=== PATIENT | male | born 1985 | race Two or more races ===

== ENCOUNTER 2024-01-18 23:37 | Observation (INO) | payer BC ==
[2024-01-19] MEDS ORDERED: NALOXONE 0.4 MG/ML 1 ML VIAL IV PRN (00:03)
[2024-01-19] MEDS ORDERED: ONDANSETRON 4 MG/2 ML VIAL IVP PRN (00:03)
[2024-01-19] MEDS ORDERED: HYDROmorphone 0.5 MG/0.5 ML SYRINGE IVP PRN (00:03)
[2024-01-19] MEDS ORDERED: ACETAMINOPHEN TAB 325 MG TAB PO PRN (00:03)
[2024-01-19] MEDS: SODIUM CHLORIDE 0.9% 1,000 ML IV SCH (00:28)
--- NOTE | 2024-01-19 00:41 | ED ---
General Adult HPI - General Chief complaint: Abdominal Pain Stated complaint: Acute appendicitis Time Seen by Provider: 01/18/24 23:40 Source: patient, RN notes reviewed, old records reviewed Mode of arrival: EMS - History of Present Illness Initial comments: 38-year-old male presents from outside hospital with acute appendicitis. Patient had developed abdominal pain approximately 3 days prior and this had worsened and become localized to the right lower quadrant. Patient denies fever. Denies vomiting. He was seen at outside hospital had laboratory testing as well as CT scan. CT showed a dilated appendix with adjacent inflammatory change. No fluid collection or complicating process. Transferred for surgical evaluation. - Related Data Allergies Allergy/AdvReac Type Severity Reaction Status Date / Time cefaclor [From [facility]] Allergy Rash/Hives Verified 01/18/24 23:49 mustard Allergy Rash/Hives Verified 01/18/24 23:49 Penicillins Allergy Unknown Verified 01/18/24 23:49 Childhood Sulfa (Sulfonamide Allergy Unknown Verified 01/18/24 23:49 Antibiotics) Childhood Review of Systems ROS Statement: Those systems with pertinent positive or pertinent negative responses have been documented in the HPI. ROS Other: All systems not noted in ROS Statement are negative. Past Medical History History of Any Multi-Drug Resistant Organisms: None Reported Past Surgical History: Orthopedic Surgery Past Psychological History: No Psychological Hx Reported Smoking Status: Never smoker General Exam General appearance: alert, in no apparent distress Head exam: Present: atraumatic, normocephalic Eye exam: Present: normal appearance, PERRL ENT exam: Present: normal exam Neck exam: Present: normal inspection. Absent: tenderness, meningismus Respiratory exam: Present: normal lung sounds bilaterally. Absent: respiratory distress, wheezes Cardiovascular Exam: Present: regular rate, normal rhythm GI/Abdominal exam: Present: soft, tenderness (Mild right lower quadrant). Absent: distended Neurological exam: Present: alert, oriented X3 Psychiatric exam: Present: normal affect, normal mood Skin exam: Present: warm, dry, intact. Absent: cyanosis, diaphoretic Course Vital Signs 01/18/24 23:41 Temperature 98.2 F Pulse Rate 70 Respiratory 16 Rate Blood Pressure 146/91 O2 Sat by Pulse 99 Oximetry Medical Decision Making - Medical Decision Making Was pt. sent in by a medical professional or institution (, PA, BEAD MACHINE OPERATOR, urgent care, hospital, or prison...) When possible be specific @ -Transfer from [facility] Did you speak to anyone other than the patient for history (EMS, parent, family, police, friend...)? What history was obtained from this source @ -No Did you review nursing and triage notes (agree or disagree)? Why? @ -I reviewed and agree with nursing and triage notes Were old charts reviewed (outside hosp., previous admission, EMS record, old EKG, old radiological studies, urgent care reports/EKG's, prison records)? Report findings @ -No old charts were reviewed Differential Abdominal Pain Men: Appendicitis, cholecystitis, diverticulosis, ischemic bowel, pancreatitis, hepatitis, UTI, gastroenteritis, AAA, incarcerated hernia, bowel obstruction, constipation, inflammatory bowel, hepatitis, peptic ulcer disease, splenic infarction, perforated viscus, testicular torsion, this is not meant to be an all-inclusive list EKG interpreted by me (3pts min.). @ -As above X-rays interpreted by me (1pt min.). @ -None done CT interpreted by me (1pt min.). @ -CT from outside facility, currently being uploaded U/S interpreted by me (1pt. min.). @ -None done What testing was considered but not performed or refused? (CT, X-rays, U/S, labs)? Why? @ -None What meds were considered but not given or refused? Why? @ -None Did you discuss the management of the patient with other professionals (professionals i.e. , PA, BEAD MACHINE OPERATOR, lab, RT, psych nurse, social worker palliative care, manager community relations, teacher, complaint evaluation officer, field nurse case manager)? Give summary @Case discussed with Dr. Reyes covering for general surgery Was smoking cessation discussed for >3mins.? @ -No Was critical care preformed (if so, how long)? @ -No Were there social determinants of health that impacted care today? How? (Homelessness, low income, unemployed, alcoholism, drug addiction, transportation, low edu. Level, literacy, decrease access to med. care, senior living, rehab)? @ -No Was there de-escalation of care discussed even if they declined (Discuss DNR or withdrawal of care, Hospice)? DNR status @ -No What co-morbidities impacted this encounter? (DM, HTN, Smoking, COPD, CAD, Cancer, CVA, ARF, Chemo, Hep., AIDS, mental health diagnosis, sleep apnea, morbid obesity)? @ -None Was patient admitted / discharged? Hospital course, mention meds given and route, prescriptions, significant lab abnormalities, going to OR and other pertinent info. @ -[38-year-old male with abdominal pain and CT confirmed appendicitis. Patient had been started on cefepime prior to transfer. He is continued on cefepime and Flagyl. Repeat laboratory testing is pending, initial labs were unremarkable. Admitted with acute appendicitis Undiagnosed new problem with uncertain prognosis? @ -No Drug Therapy requiring intensive monitoring for toxicity (Heparin, Nitro, Insulin, Cardizem)? @ -No Were any procedures done? @ -No Diagnosis/symptom? @ -Acute appendicitis Acute, or Chronic, or Acute on Chronic? @Acute Uncomplicated (without systemic symptoms) or Complicated (systemic symptoms)? @ -Default Side effects of treatment? @ -No Exacerbation, Progression, or Severe Exacerbation? @ -No Poses a threat to life or bodily function? How? (Chest pain, USA, MD, pneumonia, PE, COPD, DKA, ARF, appy, cholecystitis, CVA, Diverticulitis, Homicidal, Suicidal, threat to staff... and all critical care pts) @ -Yes, sepsis Disposition Clinical Impression: Acute appendicitis Disposition: ADMITTED IP TO THIS HOSP Condition: Stable Is patient prescribed a controlled substance at d/c from ED?: No Time of Disposition: 00:41
[2024-01-19 01:11] LABS: Basophils # (A) 0.1 k/uL (0-0.2); Basophils % (A) 1 %; Eosinophils # (A) 0.2 k/uL (0-0.7); Eosinophils % (A) 3 %; HCT 39.9 % (39.0-53.0); HGB 13.3 gm/dL (13.0-17.5); Lymphocytes # (A) 2.5 k/uL (1.0-4.8); Lymphocytes % (A) 34 %; MCH 28.2 pg (25.0-35.0); MCHC 33.2 g/dL (31.0-37.0); Mean Platelet Volume 7.5; Monocytes # (A) 0.4 k/uL (0-1.0); Monocytes % (A) 5 %; Neutrophils # (A) 4.1 k/uL (1.3-7.7); Neutrophils % (A) 56 %; Platelet Count 248 k/uL (150-450); RDW 12.2 % (11.5-15.5); WBC 7.3 k/uL (3.8-10.6)
[2024-01-19 01:21] LABS: ALT 30 U/L (4-49); AST 27 U/L (17-59); African American GFR (CKD) >90 (>60 ml/min/1.73 sqM); Albumin 4.3 g/dL (3.5-5.0); Alkaline Phosphatase 51 U/L (38-126); Anion Gap 5 mmol/L; Blood Urea Nitrogen 11 mg/dL (9-20); Calcium 8.8 mg/dL (8.4-10.2); Carbon Dioxide 23 mmol/L (22-30); Chloride 111 mmol/L (98-107); Glucose 89 mg/dL (74-99); Non-African American GFR(CKD) >90 (>60 ml/min/1.73 sqM); Potassium 3.8 mmol/L (3.5-5.1); Sodium 139 mmol/L (137-145); Total Bilirubin 0.9 mg/dL (0.2-1.3)
[2024-01-19 01:33] LABS: Partial Thromboplastin Time 21.9 sec (22.0-30.0); Prothrombin Time 10.6 sec (10.0-12.5)
[2024-01-19] MEDS ORDERED: fentaNYL (PF) 50 MCG/ML 2 ML AMP ONE (05:32)
[2024-01-19] MEDS ORDERED: GLYCOPYRROLATE 0.2 MG/ML 2 ML VIAL ONE (05:32)
[2024-01-19] MEDS ORDERED: PROPOFOL 10 MG/ML 20 ML VIAL IV ONE (05:32)
[2024-01-19] MEDS ORDERED: NEOSTIGMINE 1 MG/ML 10 ML VIAL ONE (05:32)
[2024-01-19] MEDS ORDERED: ROCURONIUM 10 MG/ML (5 ML VIAL) IV ONE (05:32)
[2024-01-19] MEDS ORDERED: SUCCINYLCHOLINE CHLORIDE 200 MG/10 ML VIAL IV ONE (05:32)
[2024-01-19] MEDS ORDERED: MIDAZOLAM 2 MG/2 ML VIAL ONE (05:32)
[2024-01-19] MEDS ORDERED: KETOROLAC 15 MG/ML 1 ML VIAL ONE (05:32)
[2024-01-19] MEDS ORDERED: LIDOCAINE 1% INJ 10MG/ML (20 ML MDV) ONE (05:32)
[2024-01-19] MEDS: SODIUM CHLORIDE 0.9% 800 ML IV ONE (05:35)
[2024-01-19] MEDS: LIDOCAINE 1%-EPI 1:100,000 20 ML VIAL SQ ONE (05:58)
--- NOTE | 2024-01-19 06:16 | P.GSHP ---
History of Present Illness H&P Date: 01/19/24 38-year-old male presents to [facility] emergency department as a transfer from outside facility with concern for acute appendicitis. He states that he began having right lower quadrant pain 2 days ago in the afternoon and the pain became a dull ache. It did not subside so he presented to his local emergency department. On workup CT of the abdomen and pelvis was concerning for acute appendicitis with a dilated appendix and surrounding fat stranding. He denies any current nausea or vomiting. Denies any loss of appetite. No previous abdominal surgeries. - Review of Systems All systems: negative Past Medical History History of Any Multi-Drug Resistant Organisms: None Reported Past Surgical History: Orthopedic Surgery Past Psychological History: No Psychological Hx Reported Smoking Status: Never smoker Medications and Allergies Allergies Allergy/AdvReac Type Severity Reaction Status Date / Time cefaclor [From Ceclor] Allergy Rash/Hives Verified 01/18/24 23:49 mustard Allergy Rash/Hives Verified 01/18/24 23:49 Penicillins Allergy Unknown Verified 01/18/24 23:49 Childhood Sulfa (Sulfonamide Allergy Unknown Verified 01/18/24 23:49 Antibiotics) Childhood Surgical - Exam Osteopathic Statement: *. No significant issues noted on an osteopathic structural exam other than those noted in the History and Physical/Consult. Vital Signs Temp Pulse Resp BP Pulse Ox 98.2 F 70 16 146/91 99 01/18/24 23:41 01/18/24 23:41 01/18/24 23:41 01/18/24 23:41 01/18/24 23:41 - General well developed, well nourished - Eyes normal ocular movement - ENT normal mucosa, no hearing loss - Neck trachea midline - Respiratory normal respiratory effort - Abdomen Soft, tender to palpation in the right lower quadrant, nondistended, no rebound or guarding - Psychiatric oriented to time, oriented to person, oriented to place Results - Labs 01/19/24 00:55 01/19/24 00:55 Abnormal Lab Results - Last 24 Hours (Table) 01/19/24 01/19/24 Range/Units 00:55 00:55 APTT 21.9 L (22.0-30.0) sec Chloride 111 H (98-107) mmol/L Diabetes panel 01/19/24 Range/Units 00:55 Sodium 139 (137-145) mmol/L Potassium 3.8 (3.5-5.1) mmol/L Chloride 111 H (98-107) mmol/L Carbon Dioxide 23 (22-30) mmol/L BUN 11 (9-20) mg/dL Creatinine 0.73 (0.66-1.25) mg/dL Glucose 89 (74-99) mg/dL Calcium 8.8 (8.4-10.2) mg/dL AST 27 (17-59) U/L ALT 30 (4-49) U/L Alkaline Phosphatase 51 (38-126) U/L Total Protein 7.0 (6.3-8.2) g/dL Albumin 4.3 (3.5-5.0) g/dL Calcium panel 01/19/24 Range/Units 00:55 Calcium 8.8 (8.4-10.2) mg/dL Albumin 4.3 (3.5-5.0) g/dL Pituitary panel 01/19/24 Range/Units 00:55 Sodium 139 (137-145) mmol/L Potassium 3.8 (3.5-5.1) mmol/L Chloride 111 H (98-107) mmol/L Carbon Dioxide 23 (22-30) mmol/L BUN 11 (9-20) mg/dL Creatinine 0.73 (0.66-1.25) mg/dL Glucose 89 (74-99) mg/dL Calcium 8.8 (8.4-10.2) mg/dL Adrenal panel 01/19/24 Range/Units 00:55 Sodium 139 (137-145) mmol/L Potassium 3.8 (3.5-5.1) mmol/L Chloride 111 H (98-107) mmol/L Carbon Dioxide 23 (22-30) mmol/L BUN 11 (9-20) mg/dL Creatinine 0.73 (0.66-1.25) mg/dL Glucose 89 (74-99) mg/dL Calcium 8.8 (8.4-10.2) mg/dL Total Bilirubin 0.9 (0.2-1.3) mg/dL AST 27 (17-59) U/L ALT 30 (4-49) U/L Alkaline Phosphatase 51 (38-126) U/L Total Protein 7.0 (6.3-8.2) g/dL Albumin 4.3 (3.5-5.0) g/dL Assessment and Plan Plan: 38-year-old male with acute appendicitis. Begin IV antibiotics. Plan for laparoscopic appendectomy. Risks, benefits and alternatives were provided to the patient. All questions answered prior to attending the operating suite.
--- NOTE | 2024-01-19 06:24 | P.OP ---
Date of Procedure: 01/19/24 Preoperative Diagnosis: Acute appendicitis Postoperative Diagnosis: Acute appendicitis Procedure(s) Performed: Laparoscopic appendectomy Anesthesia: DAYSI Surgeon: Mine Reyes Pathology: other (Appendix) Condition: stable Disposition: floor Indications for Procedure: 38-year-old male presented to the emergency department as a transfer from an outside facility secondary to acute appendicitis. This was confirmed on CT of the abdomen and pelvis. Plan is for laparoscopic appendectomy. Risks, benefits and alternatives were provided to the patient. All questions answered prior to surgical intervention. Operative Findings: Injected and dilated appendix Description of Procedure: Patient was brought to the operating suite and placed in supine position on the operating table. Sedation was provided by anesthesia and the patient underwent endotracheal intubation. Patient's abdomen was prepped and draped in regular sterile fashion. A supraumbilical incision was made and dissection was carried to the fascia. The fascia was incised and 12 mm trocar was placed. Pneumoperitoneum was achieved. The patient was placed in appropriate position and a 5 mm port was placed in the suprapubic and left lower quadrant region. The appendix was then visualized and was noted to be injected, inflamed and dilated. A window was created between the appendix and the mesoappendix and LigaSure device was used to ligate the appendix from the mesentery. The base of the appendix was clearly visualized and a stapler was fired across the base. Hemostasis was noted to be maintained with no evidence of leakage. The appendix was then placed in an Endo Catch bag and removed from the abdomen from the supraumbilical incision site. Irrigation was placed in the right lower quadrant in the pelvis and suctioned. The supraumbilical fascial incision site was then closed under direct visualization using an 0 Vicryl suture and Ryan-Anika device. Pneumoperitoneum was then released. All ports removed from the abdomen. All incision sites were closed with 4-0 Vicryl subcuticular suture. Sterile dressing was applied. The patient was awakened in the operating suite and taken to postanesthesia care unit in stable condition.
[2024-01-19] MEDS: LACTATED RINGERS 1,000 ML IV SCH (06:44)
[2024-01-19] MEDS: HYDROmorphone 0.5 MG/0.5 ML SYRINGE IVP PRN (06:44)
[2024-01-19] MEDS: IV FLUID CONTINUATION 1,000 ML IV ONE (06:45)
[2024-01-19] MEDS: HYDROcodone/APAP 5-325MG 1 EACH TAB PO PRN (08:22)
[2024-01-19] MEDS: CEFEPIME 2 GM in SODIUM CHLORIDE 0.9% 100 ML IVPB SCH (08:23)
[2024-01-19] MEDS: metroNIDAZOLE-NS PMX 500 MG in SALINE 1 100ML.BAG IVPB SCH (08:23)
[2024-01-19] MEDS: KETOROLAC 15 MG/ML 1 ML VIAL IVP SCH (12:56)
[2024-01-19 14:09] VITALS: BP 125/74; PULSE 71; RESP 16; TEMP 97.7
--- NOTE | 2024-01-19 15:13 | P.DS ---
Providers Date of admission: 01/19/24 00:04 Expected date of discharge: 01/19/24 Attending physician: Mine Reyes DO Primary care physician: Stated None Hospital Course: Discharge diagnosis 1. Acute appendicitis status post laparoscopic appendectomy Hospital course This is a 38-year-old male who presented to the emergency department as a transfer from outside facility with acute appendicitis. He had right lower quadrant abdominal pain x [address] scan had reported acute appendicitis with dilated appendix and surrounding fat stranding. Patient is status post laparoscopic appendectomy. Patient tolerated surgery well. His pain is controlled. He is tolerating diet. He has been up and ambulating. Denies any difficulty urinating. He is afebrile. Incision sites are clean dry and intact. He is stable for discharge. Please refer to chart for any further details. Physician Hotel Staff Member note has been reviewed by physician. Signing provider agrees with the documented findings, assessment, and plan of care. Attestation Patient did improve after laparoscopic appendectomy. Pain is controlled. Tolerating diet. Would like to be discharged and is stable for discharge. Follow-up in 2 weeks in the clinic. Mine Reyes DO Patient Condition at Discharge: Stable Plan - Discharge Summary Discharge Rx Participant: No New Discharge Prescriptions: New Docusate [Colace] 100 mg PO BID #30 capsule Ibuprofen [Motrin] 600 mg PO Q8HR PRN #30 tab PRN Reason: Pain HYDROcodone/APAP 5-325MG [Vidor 5-325] 1 tab PO Q6HR PRN 3 Days #12 tab PRN Reason: Pain Discharge Medication List Docusate [Colace] 100 mg PO BID #30 capsule 01/19/24 [Rx] HYDROcodone/APAP 5-325MG [Vidor 5-325] 1 tab PO Q6HR PRN 3 Days #12 tab 01/19/24 [Rx] Ibuprofen [Motrin] 600 mg PO Q8HR PRN #30 tab 01/19/24 [Rx] Follow up Appointment(s)/Referral(s): None,Stated [Primary Care Provider] - 1 Week Mine Reyes DO [Doctor of Osteopathic Medicine] - 02/01/24 10:45 am Patient Instructions/Handouts: Hydrocodone/Acetaminophen (By mouth), Ibuprofen (By mouth), Laxative, Stool Softeners (By mouth), Laparoscopic Appendectomy (DC) Activity/Diet/Wound Care/Special Instructions: No driving while taking Vidor No lifting over 10 pounds You may shower. No soaking or tub baths for 2 weeks Very light activity until you are reevaluated at your follow up appointment with your surgeon Discharge Disposition: HOME SELF-CARE
== END 2024-01-19 17:23 | disposition home or self-care (01) ==
LOC: EC 23:37 → 6NMEDSUR 01-19 00:04 → 5NMEDONC 01-19 01:43
PROVIDERS: ADMIT Surgery; ATTEND Surgery
DX: K35.80 Unspecified acute appendicitis (principal); Z88.0 Allergy status to penicillin; Z88.1 Allergy status to other antibiotic agents; Z88.2 Allergy status to sulfonamides; Z91.018 Allergy to other foods
CPT/HCPCS: 44970; 99285; 86900; 86901; 88304; 80053; 85025; 85610; 85730; 86850; G0378 ×2; J2250; J0330; J2710; J2003; J0692; J3010; J1885; J2704; J1171; J1836; J1596